=== PATIENT | female | born 1975 | race Caucasian/White ===

== ENCOUNTER 2020-11-04 07:37 | Emergency (ER) | payer SELFPAY ==
[~2020-11-04] VITALS: Ht 165.1 cm; Wt 75.0 kg
--- NOTE | 2020-11-04 08:02 | PHYS DOC ---
Past History Past Medical History: Diabetes (Insulin-dependent type 2; however is not on any medications after losing 100+ pounds), Hypertension, Other (x4 different rare kidney diseases) Adult General Chief Complaint Chief Complaint: SYNCOPE HPI HPI Patient is a 45-year-old female presenting via EMS for syncope. Patient reportedly had 4 episodes of syncope this morning while at work. Patient reports that this has happened in the past, all have been due to episodes of hypotension. Patient was previously extremely unhealthy, has several chronic kidney diseases and at one time was obese with hypertension, insulin-dependent type 2 diabetic etc. She subsequently lost +100lbs in the past 12 months and is off of all medications except for vitamins. Denies any excessive coffee use, states she forgot to take her vitamins and protein shake in the morning prior to work, did not have any other p.o. intake after waking up. Patient subsequently remembers going to work and after approximately 30 minutes on the job, started having prodromal feelings of passing out such as lightheaded, dizziness, vision changes and overall feeling of unease. She then had x3 episodes of syncope that were observed by peers. First of which prompted patient to fall to ground hitting her head on a hard metallic safe in the process. EMS was subsequently called after patient continued to demonstrate weakness and feelings of light headedness. On arrival, EMS evaluated patient and found patient to be 74/50 and subsequently 94/60 on recheck with POC glucose >120. Patient was given her typical protein shake to drink en route to our facility and report this feeling "much better" after taking this. Last reported blood pressure per EMS prior to arrival was 106/80. Review of Systems Review of Systems Fourteen body systems of review of systems have been reviewed. See HPI for pertinent positives and negative responses, other hartman all other systems are negative, non-pertinent or non-contributory Physical Exam Physical Exam Constitutional: Well developed, well nourished, no acute distress, non-toxic appearance. HENT: Normocephalic, atraumatic, bilateral external ears normal, oropharynx moist, no oral exudates, nose normal. Eyes: PERRLA, EOMI, conjunctiva normal, no discharge. Neck: Normal range of motion, no tenderness, supple, no stridor. Cardiovascular: Heart rate regular, sinus rhythm, no murmurs rubs or gallops Lungs & Thorax: Bilateral breath sounds clear to auscultation Abdomen: Bowel sounds normal, soft, no tenderness, no masses, no pulsatile masses. Nonsurgical abdomen, no peritoneal signs Skin: Warm, dry, no erythema, no rash. Back: No tenderness, no CVA tenderness. Extremities: No tenderness, no cyanosis, no clubbing, ROM intact, no edema. Neurologic: Alert and oriented X 3, cranial nerves II through XII intact, normal motor & sensory function, no focal deficits noted. Psychologic: Affect normal, judgement normal, mood normal. Current Patient Data Vital Signs Vital Signs Date Time Temp Pulse Resp B/P (MAP) Pulse Ox O2 Delivery O2 Flow Rate FiO2 11/04/20 07:40 97.8 66 16 101/69 (80) 99 Vital Signs Date Time Temp Pulse Resp B/P (MAP) Pulse Ox O2 Delivery O2 Flow Rate FiO2 11/04/20 10:25 66 16 109/70 (83) 99 11/04/20 07:40 97.8 Lab Results Laboratory Tests Test 11/04/20 08:45 White Blood Count 8.7 x10^3/uL Red Blood Count 4.59 x10^6/uL Hemoglobin 14.3 g/dL Hematocrit 42.4 % Mean Corpuscular Volume 92 fL Mean Corpuscular Hemoglobin 31 pg Mean Corpuscular Hemoglobin Concent 34 g/dL Red Cell Distribution Width 13.4 % Platelet Count 269 x10^3/uL Neutrophils (%) (Auto) 79 % Lymphocytes (%) (Auto) 14 % Monocytes (%) (Auto) 5 % Eosinophils (%) (Auto) 2 % Basophils (%) (Auto) 1 % Neutrophils # (Auto) 6.9 x10^3uL Lymphocytes # (Auto) 1.2 x10^3/uL Monocytes # (Auto) 0.4 x10^3/uL Eosinophils # (Auto) 0.1 x10^3/uL Basophils # (Auto) 0.1 x10^3/uL Sodium Level 143 mmol/L Potassium Level 4.3 mmol/L Chloride Level 106 mmol/L Carbon Dioxide Level 26 mmol/L Anion Gap 11 Blood Urea Nitrogen 31 mg/dL Creatinine 1.3 mg/dL Estimated GFR (Cockcroft-Gault) 44.1 BUN/Creatinine Ratio 24 Glucose Level 106 mg/dL Calcium Level 9.1 mg/dL Total Bilirubin 0.2 mg/dL Aspartate Amino Transf (AST/SGOT) 18 U/L Alanine Aminotransferase (ALT/SGPT) 30 U/L Alkaline Phosphatase 55 U/L Troponin I Quantitative 0.018 ng/mL Total Protein 6.7 g/dL Albumin 3.4 g/dL Albumin/Globulin Ratio 1.0 EKG EKG EKG ordered and interpreted by myself at 0808 hrs. as sinus rhythm at 64 bpm, unremarkable intervals, no axis deviation, no acute ischemic findings, no STEMI Radiology/Procedures Radiology/Procedures CT HEAD AND C-SPINE WO dated 11/04/2020 7:52 AM Indication:Reason: syncope, fall and hit anterior head / Spl. Instructions: / History: Comparison: No comparison is available. Technique: Noncontrast images were performed. Sagittal and coronal reconstructions were obtained. One or more of the following individualized dose reduction techniques were utilized for this examination: 1. Automated exposure control 2. Adjustment of the mA and/or kV according to patient size 3. Use of iterative reconstruction technique Findings: CT head: There is no apparent intracranial hemorrhage or abnormal extra-axial fluid collection. No area of abnormal density is seen in the brain. The ventricles and basilar cisterns are normally positioned. Bone windows show no apparent fracture of the skull or abnormal sinus or mastoid opacification. CT cervical spine: There is slight reversal of the usual lordosis. There is no loss of vertebral body height or prevertebral soft tissue swelling. No fracture line is seen. Intervertebral discs do not appear narrowed. Evaluation of the soft tissue components of the canal is limited without intrathecal contrast. No destructive process is seen. IMPRESSION: CT head: No acute abnormality. CT cervical spine: No acute abnormality. Electronically signed by: Tian Baig Jr., MD (11/04/2020 9:22 AM) [id number] Heart Score C/O Chest Pain: No HEART Score for Chest Pain: HEART Score for Chest Pain Response (Comments) Value History Slighlty/Non-Suspicious 0 ECG Normal 0 Age >45 - < 65 1 Risk Factors 1 or 2 Risk Factors 1 Troponin < Normal Limit 0 Total 2 Risk Factors: Risk Factors: DM, Current or recent (<one month) smoker, HTN, HLP, family history of CAD, obesity. Risk Scores: Risk Factors: DM, Current or recent (<one month) smoker, HTN, HLP, family history of CAD, obesity. Course & Med Decision Making Course & Med Decision Making Patient know originally presented hypotensive which is normal per her and otherwise hemodynamically stable. HPI and physical exam nonconcerning for emergent or surgical pathology Comprehensive ER work-up obtained and unremarkable. 1 L IV fluid normal saline administered Patient reassessed serially throughout ER visit and remained asymptomatic. She was ambulatory without reproduction of symptoms. She is tolerating p.o. intake. She feels ready for discharge home I reviewed ER work-up at length and HPI. 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 Likely hypovolemic etiology that was improved with p.o. intake and IV fluid resuscitation Nonetheless, strict return precautions were discussed with good understanding by patient. I advised patient to follow-up with primary care physician this upcoming week for repeat evaluation. All questions and concerns addressed prior to ER departure Dragon Disclaimer Dragon Disclaimer This electronic medical record was generated, in whole or in part, using a voice recognition dictation system. Departure Departure: Impression: Primary Impression: Syncope Disposition: 01 DC HOME SELF CARE/HOMELESS Condition: GOOD Referrals: PCP,NO (PCP) Patient Instructions: Syncope Additional Instructions: As discussed prior to ER departure, your physical examination and comprehensive ER work-up was grossly unremarkable. As discussed at length, your presenting symptoms were likely due to not eating and/or drinking at all this morning prior to physical exertion at work. I discussed utility of further diagnostic tests while in ER but there is little indication in doing so, there is no indication in hospital admission at this time. As such, please continue supportive care practices while at home, please call your primary care physician tomorrow to review ER visit today. If any concerning signs or symptoms present prior to outpatient follow-up please do not hesitate to come back for repeat evaluation. It was a pleasure to take care of you and I wish you the best going forward CLEMENTE ROE DO Nov 04, 2020 08:02
[2020-11-04 09:10] LABS: BASO # 0.1 x10^3/uL (0.0-0.2); BASO % 1 % (0-3); EOS # 0.1 x10^3/uL (0.0-0.7); EOS % 2 % (0-3); HEMATOCRIT 42.4 % (36.0-47.0); HEMOGLOBIN 14.3 g/dL (12.0-15.5); LYMPH # 1.2 x10^3/uL (1.0-4.8); LYMPH % 14 % (24-48); MEAN CORPUSCULAR HEMOGLOBIN 31 pg (25-35); MEAN CORPUSCULAR HGB CONC 34 g/dL (31-37); MEAN CORPUSCULAR VOLUME 92 fL (79-100); MONO # 0.4 x10^3/uL (0.0-1.1); MONO % 5 % (0-9); NEUT # 6.9 x10^3uL (1.8-7.7); NEUT % 79 % (31-73); PLATELET COUNT 269 x10^3/uL (140-400); RED BLOOD COUNT 4.59 x10^6/uL (3.50-5.40); RED CELL DISTRIBUTION WIDTH 13.4 % (11.5-14.5); WHITE BLOOD COUNT 8.7 x10^3/uL (4.0-11.0)
[2020-11-04 09:14] LABS: CALCIUM 9.1 mg/dL (8.5-10.1); CREATININE 1.3 mg/dL (0.6-1.0); GFR 44.1; POTASSIUM 4.3 mmol/L (3.5-5.1)
[2020-11-04 09:19] LABS: ALBUMIN 3.4 g/dL (3.4-5.0); TOTAL BILIRUBIN 0.2 mg/dL (0.2-1.0); TOTAL PROTEIN 6.7 g/dL (6.4-8.2)
--- NOTE | 2020-11-04 09:24 | RAD ---
CT HEAD AND C-SPINE WO dated 11/04/2020 7:52 AM Indication:Reason: syncope, fall and hit anterior head / Spl. Instructions: / History: Comparison: No comparison is available. Technique: Noncontrast images were performed. Sagittal and coronal reconstructions were obtained. One or more of the following individualized dose reduction techniques were utilized for this examinat ion: 1. Automated exposure control 2. Adjustment of the mA and/or kV according to patient size 3. Use of iterative reconstruction technique Findings: CT head: There is no apparent intracranial hemorrhage or abnormal extra-axial fluid collection. No ar ea of abnormal density is seen in the brain. The ventricles and basilar cisterns are normally positio christian. Bone windows show no apparent fracture of the skull or abnormal sinus or mastoid opacification. CT cervical spine: There is slight reversal of the usual lordosis. There is no loss of vertebral body height or prevertebral soft tissue swelling. No fracture line is seen. Intervertebral discs do not a ppear narrowed. Evaluation of the soft tissue components of the canal is limited without intrathecal contrast. No destructive process is seen. IMPRESSION: CT head: No acute abnormality. CT cervical spine: No acute abnormality. Electronically signed by: Tian Baig Jr., MD (11/04/2020 9:22 AM) [id number]
[2020-11-04 10:25] VITALS: BP 109/70
--- NOTE | 2020-11-04 12:28 | EKG ---
[address] [address] Test Date: 2020-11-04 Test Time: 08:00:50 Pat Name: CASTRO MARQUIS Department: Room: Gender: F [employer]: TIM : 1975 Requested By: CLEMENTE ROE Order Number: [id number] Reading MD: Measurements Intervals [place] Rate: 64 P: 38 CT: 170 QRS: 35 QRSD: 74 T: 41 QT: 380 QTc: 396 Interpretive Statements SINUS RHYTHM OTHERWISE NORMAL ECG RI6.02 No previous ECG available for comparison
== END 2020-11-04 10:25 | disposition home or self-care (01) ==
LOC: ER 07:37
DX: R55 Syncope and collapse (principal); I10 Essential (primary) hypertension; E11.9 Type 2 diabetes mellitus without complications; R42 Dizziness and giddiness
CPT/HCPCS: 36415; 70450; 72125; 80053; 84484; 85025; 93005; 99285-25

== ENCOUNTER 2020-11-20 11:16 | Emergency (ER) | payer OTHER, BC ==
[~2020-11-20] VITALS: Ht 165.1 cm; Wt 75.3 kg
[2020-11-20] MEDS ORDERED: IV NORMAL SALINE 1,000ML 1,000 ML IV ONE (12:30)
--- NOTE | 2020-11-20 12:46 | PHYS DOC ---
Past History Past Medical History: Diabetes, Hypertension, Other Additional Past Medical Histor: Lupus, OHS (MARIA M SAL APRN) Past Surgical History: Appendectomy, Hysterectomy Additional Past Surgical Histo: ORIF ankle, hand surgery (MARIA M SAL APRN) Alcohol Use: Rarely (MARIA M SAL APRN) Adult General Chief Complaint Chief Complaint: DIZZY/LIGHT HEADED HPI HPI Patient is a 45-year-old female presents emergency department with complaints of dizziness since waking up Thursday. Patient states that she went out drinking socially on Thursday evening, reports only drinking 1 drink, reports that she does not remember any events after drinking her first drink until Thursday when she woke up feeling groggy and dizzy with her heart racing. Patient states that her heart racing resolved Thursday. Patient fears she may have been "roofied". Patient states ever since she woke up Thursday morning "I just feel unbalanced or off". Patient denies any room spinning, vision changes, numbness or tingling to her extremities, headaches, chest pain or shortness of breath. Patient denies any nasal or chest congestion. Patient denies any recent illnesses. Patient denies any recent travel. Patient denies any vaginal discharge, patient denies any STI concerns. (MARIA M SAL APRN) Review of Systems Review of Systems 14 body systems of review of systems have been reviewed. See HPI for pertinent positives and negative responses, otherwise all other systems are negative, nonpertinent or noncontributory. (MARIA M SAL APRN) Current Medications Current Medications Current Medications Medications (Trade) Dose Ordered Sig/Andrea Start Time Stop Time Status Last Admin Dose Admin Sodium Chloride 1,000 ml @ 1,000 mls/hr 1X ONCE 11/20/20 12:30 11/20/20 13:29 (MARIA M SAL APRN) Allergies Allergies Allergies Coded Allergies Type Severity Reaction Last Updated Verified amoxicillin Allergy Unknown 11/20/20 Yes atorvastatin Allergy Unknown 11/20/20 Yes clavulanic acid Allergy Unknown 11/20/20 Yes iodine Allergy Unknown 11/20/20 Yes pregabalin Allergy Unknown 11/20/20 Yes (MARIA M SAL APRN) Physical Exam Physical Exam Constitutional: Well developed, well nourished, no acute distress, non-toxic appearance. 45-year-old female in no apparent distress. HENT: Normocephalic, atraumatic, bilateral external ears normal, oropharynx moist, no oral exudates, nose normal. Oropharynx pink, moist, no infectious process appreciated. No lymphadenopathy of the head or neck appreciated. Bilateral TMs within normal limits, bilateral external auditory canals within normal limits, no drainage appreciated. Bilateral turbinates moist, pink, no drainage appreciated. Eyes: PERRLA, EOMI, conjunctiva normal, no discharge. 6 cardinal eye movements intact. Neck: Normal range of motion, no tenderness, supple, no stridor. No nuchal rigidity, no meningismus signs. Cardiovascular:Heart rate regular rhythm, no murmur, heart sounds S1-S2 to auscultation. Bradycardic rate. Lungs & Thorax: Bilateral breath sounds clear to auscultation all lung valentin, no adventitious lung sounds appreciated. Abdomen: Bowel sounds normal, soft, no tenderness, no masses, no pulsatile masses. Skin: Warm, dry, no erythema, no rash. Back: No tenderness, no CVA tenderness. Extremities: No tenderness, no cyanosis, no clubbing, ROM intact, no edema. Neurologic: Alert and oriented X 3, normal motor function, normal sensory function, no focal deficits noted. Cranial nerves intact, negative Romberg sign, negative Brudzinski's sign, negative Kernig sign, +2 deep tendon reflexes of the upper and lower extremities. Psychologic: Affect normal, judgement normal, mood normal. (MARIA M SAL APRN) Current Patient Data Lab Results Laboratory Tests Test 11/20/20 12:50 11/20/20 12:55 11/20/20 12:58 Urine Collection Type Void Urine Color Yellow Urine Clarity Clear Urine pH 6.5 Urine Specific [place] 1.025 Urine Protein >100 mg/dl Urine Glucose (UA) Neg mg/dL Urine Ketones (Stick) Neg mg/dL Urine Blood Neg Urine Nitrite Neg Urine Bilirubin Neg Urine Urobilinogen Dipstick 0.2 mg/dL Urine Leukocyte Esterase Neg Urine RBC 0 /HPF Urine WBC 11-20 /HPF Urine Bacteria Few /HPF Urine Opiates Screen Neg Urine Methadone Screen Neg Urine Barbiturates Neg Urine Phencyclidine Screen Neg Urine Amphetamine/Methamphetamine Neg Urine Benzodiazepines Screen Neg Urine Cocaine Screen Neg Urine Cannabinoids Screen Neg Urine Ethyl Alcohol Neg White Blood Count 7.1 x10^3/uL Red Blood Count 4.48 x10^6/uL Hemoglobin 14.0 g/dL Hematocrit 41.8 % Mean Corpuscular Volume 93 fL Mean Corpuscular Hemoglobin 31 pg Mean Corpuscular Hemoglobin Concent 33 g/dL Red Cell Distribution Width 13.3 % Platelet Count 279 x10^3/uL Neutrophils (%) (Auto) 61 % Lymphocytes (%) (Auto) 27 % Monocytes (%) (Auto) 7 % Eosinophils (%) (Auto) 5 % Basophils (%) (Auto) 1 % Neutrophils # (Auto) 4.3 x10^3uL Lymphocytes # (Auto) 1.9 x10^3/uL Monocytes # (Auto) 0.5 x10^3/uL Eosinophils # (Auto) 0.3 x10^3/uL Basophils # (Auto) 0.1 x10^3/uL Sodium Level 140 mmol/L Potassium Level 3.9 mmol/L Chloride Level 105 mmol/L Carbon Dioxide Level 26 mmol/L Anion Gap 9 Blood Urea Nitrogen 28 mg/dL Creatinine 1.0 mg/dL Estimated GFR (Cockcroft-Gault) 59.7 BUN/Creatinine Ratio 28 Glucose Level 108 mg/dL Calcium Level 9.1 mg/dL Total Bilirubin 0.4 mg/dL Aspartate Amino Transf (AST/SGOT) 24 U/L Alanine Aminotransferase (ALT/SGPT) 33 U/L Alkaline Phosphatase 62 U/L Troponin I Quantitative 0.018 ng/mL Total Protein 7.1 g/dL Albumin 3.3 g/dL Albumin/Globulin Ratio 0.9 Glucose (Fingerstick) 103 mg/dL Current Medications Medications (Trade) Dose Ordered Sig/Andrea Route PRN Reason Start Time Stop Time Status Last Admin Dose Admin Sodium Chloride 1,000 ml @ 1,000 mls/hr 1X ONCE IV 11/20/20 12:30 11/20/20 13:29 DC 11/20/20 13:05 (MARIA M SAL APRN) EKG EKG EKG performed at 1242 by house respiratory therapy staff shows a sinus bradycardia without ectopy, heart rate 55 bpm, NV interval 0.192, QTc interval 0 .394, no acute STEMI, no ACS, no acute ischemia appreciated, EKG interpreted by ED attending physician Dr. Roe. (MARIA M SAL APRN) Radiology/Procedures Radiology/Procedures PATIENT: CASTRO NELSON BACCOUNT: [id number] : 1975 LOCATION: ER AGE: 45 SEX: F EXAM STATUS: REG ER ORD. PHYSICIAN: MARIA M SAL APRN REASON: DIZZYNESS PROCEDURE: CT HEAD WO CONTRAST EXAM: CT Head without IV contrast CLINICAL HISTORY: Dizziness COMPARISON: None. TECHNIQUE: Routine CT of the head without contrast. PQRS compliance statement - One or more of the following individualized dose reduction techniques were utilized for this study: 1. Automated exposure control 2. Adjustment of the mA and/or kV according to patient size 3. Use of iterative reconstruction technique FINDINGS: There is no evidence of hemorrhage, mass or extra-axial fluid collection. Mittal-white differentiation is maintained with no evidence of edema. There is no mass effect or shift of the intracranial structures. The ventricles, basilar cisterns and cortical sulci are normal in size and configuration for the patients stated age. The cerebellum and brainstem are unremarkable. The calvarium demonstrates no evidence of fracture or focal lesion. Patchy opacities left ethmoid air cells likely sinusitis. Otherwise normal aeration of the visualized paranasal sinuses and mastoid air cells. The visualized portions of the orbits are normal. IMPRESSION: 1. No evidence for acute intracranial process. 2. Patchy opacities left ethmoid air cells likely sinusitis Electronically signed by: Fede Fu MD (11/20/2020 1:43 PM) [facility] DICTATED AND SIGNED BY: FEDE FU MD DATE: 11/20/20 [id number] CC: MARIA M SAL APRN; CLEMENTE ROE DO; NON,STAFF ~MTH0 0 (MARIA M SAL APRN) Heart Score C/O Chest Pain: No Risk Factors: Risk Factors: DM, Current or recent (<one month) smoker, HTN, HLP, family history of CAD, obesity. Risk Scores: Risk Factors: DM, Current or recent (<one month) smoker, HTN, HLP, family history of CAD, obesity. (MARIA M SAL APRN) Course & Med Decision Making Course & Med Decision Making Pertinent Labs and Imaging studies reviewed. (See chart for details) 45-year-old female, vital signs reviewed, presents emergency department concerning dizziness since waking up Thursday morning after drinking 1 alcoholic beverage the night before, patient fears she may have been reviewed. Physical examination equivocal, patient's Liam-Hallpike test negative, cranial nerves intact. Physical examination for central vertigo versus peripheral vertigo ill- defined. EKG, troponin, CBC, CMP, TSH, free T4, CT head without contrast, 1 L normal saline IV ordered. EKG negative for acute process, patient's labs are unremarkable, CT head was unremarkable for acute intracranial process except for however, house radiologist did read left ethmoidal sinusitis. Upon reexamination of the patient, patient states that her dizziness has resolved, patient states she just feels a little groggy. Discussed CT findings of Stewart model sinusitis. Discussed with patient starting on Zyrtec for environmental source, Zithromax for possible bacterial source, also discussed with patient this may be a viral source. Patient did request Diflucan as she usually gets yeast infections after taking antibiotics. Patient is also requesting off work today and tomorrow. Patient gave verbal understanding of discharge home instructions, antibiotic use, started on Zyrtec, follow-up with her primary care physician tomorrow, return to emergency department precautions and concerns, patient states she does feel better and is ready to go home, patient was discharged home without incident. (MARIA M SAL APRN) Course & Med Decision Making I oversaw on the above date of service of this patient and discussed the care with the [facility]. I agree with the findings, plan of care, and disposition as documented. Dizziness likely related to sinusitis versus residual p.o. ingestion. No indication for further diagnostic work-up or hospitalization for well-appearing and ambulatory patient Electronically signed, Clemente Roe DO (CLEMENTE ROE DO) Rachel Disclaimer Rachel Disclaimer This electronic medical record was generated, in whole or in part, using a voice recognition dictation system. (MARIA M SAL APRN) Departure Departure: Impression: Primary Impression: Dizziness, nonspecific Additional Impression: Sinusitis Disposition: HOME / SELF CARE / HOMELESS Condition: GOOD Referrals: NON,STAFF (PCP) Patient Instructions: Dizziness, Sinusitis Additional Instructions: You were evaluated today in the emergency department for dizziness. A extensive evaluation was performed today in the emergency department. Your urine was not infected, there were no signs of illicit drugs in your urine, your lab work did not show any concerning signs or abnormalities that would require admission to the hospital. The CT of your head did not show any brain abnormalities, however as we discussed it showed some sinusitis in your left ethmoid sinus area. This may be causing your dizziness transiently. As we discussed I am prescribing you a Z-Vladislav to cover any bacterial infectious source, I am also prescribing you Zyrtec to take daily to cover any environmental source, and as we discussed there may be a viral source to this sinusitis that will run its course, with that I would encourage you to increase your fluid intake, continue taking your normal home vitamins. Please follow-up with your primary care physician Dr. Sameera Benavidez, call her tomorrow for an appointment. I am giving you today and tomorrow off of work. Please return to the emergency department for worsening symptoms or other concerns. EMERGENCY DEPARTMENT GENERAL DISCHARGE INSTRUCTIONS Thank you for coming to [facility] (ED) today and trusting us with you care. We trust that you had a positivie experience in our Emergency Department. If you wish to speak to the department management, you may call the director at [phone]. YOUR FOLLOW UP INSTRUCTIONS ARE FOLLOWS: 1. Do you have a private Doctor? If you do not have a private doctor, please ask for a resource list of physicians or clinics that may be able to assist you with follow up care. 2. The Emergency Physician has interpreted your x-rays. The X-Ray specialist will also review them. If there is a change in the findings, you will be notified in 48 hours when at all possible. 3. A lab test or culture has been done, your results will be reviewed and you will be notified if you need a change in treatment. ADDITIONAL INSTRUCTIONS AND INFORMATION: 1. Your care today has been supervised by a physician who is specially trained in emergency care. Many problems require more than one evaluation for a complete diagnosis and treatment. We recommend that you schedule your follow up appointment as recommended to ensure complete treatment of you illness or injury. If you are unable to obtain follow up care and continue to have a problem, or if your condition worsens, we recommend that you return to the ED. 2. We are not able to safely determine your condition over the phone nor are we able to give sound medical advice over the phone. For these safety reasons, if you call for medical advice we will ask you to come to the ED for further evaluation. 3. If you have any questions regarding these discharge instructions please call the ED at [phone]. SAFETY INFORMATION: In the interest of safety, wellness, and injury prevention; we encourage you to wear your sealbelt, if you smoke; quite smoking, and we encourage family to use a protective helmet for bicycling and other sporting events that present an increased risk for head injury. IF YOUR SYMPTOMS WORSEN OR NEW SYMPTOMS DEVELOP, OR YOU HAVE CONCERNS ABOUT YOUR CONDITION; OR IF YOUR CONDITION WORSENS WHILE YOU ARE WAITING FOR YOUR FOLLOW UP APPOINTMENT; EITHER CONTACT YOUR PRIMARY CARE DOCTOR, THE PHYSICIAN WHOSE NAME AND NUMBER YOU WERE GIVEN, OR RETURN TO THE ED IMMEDIATELY. Scripts Cetirizine Hcl (ZYRTEC) 10 Mg Tablet 1 TAB PO DAILY for ALLERGIES, #30 TAB 2 Refills Prov: MARIA M SAL APRN 11/20/20 Fluconazole (DIFLUCAN) 150 Mg Tablet 1 TAB PO ONCE for YEAST INFECTION PROPLYLAXIS, #3 TAB TAKE ONE TABLET ON DAYS 1,3,AND 5 WHEN STARTING ANTIBIOTIC REGIMEN. Prov: MARIA M SAL APRN 11/20/20 Azithromycin (AZITHROMYCIN TABLET) 250 Mg Tablet 1 PKG PO UD for SINUSITIS for 5 Days, #6 TAB 0 Refills 2 the first day followed by 1 for days 2-5 Prov: MARIA M SAL APRN 11/20/20 Problem Qualifiers Additional Impression: Sinusitis Sinusitis location: ethmoidal Chronicity: unspecified Qualified Codes: J32.2 - Chronic ethmoidal sinusitis MARIA M SAL APRN Nov 20, 2020 12:46 CLEMENTE ROE DO Nov 21, 2020 07:11
[2020-11-20 13:13] LABS: BASO # 0.1 x10^3/uL (0.0-0.2); BASO % 1 % (0-3); EOS # 0.3 x10^3/uL (0.0-0.7); EOS % 5 % (0-3); HEMATOCRIT 41.8 % (36.0-47.0); LYMPH # 1.9 x10^3/uL (1.0-4.8); LYMPH % 27 % (24-48); MEAN CORPUSCULAR HEMOGLOBIN 31 pg (25-35); MEAN CORPUSCULAR HGB CONC 33 g/dL (31-37); MEAN CORPUSCULAR VOLUME 93 fL (79-100); MONO # 0.5 x10^3/uL (0.0-1.1); MONO % 7 % (0-9); NEUT # 4.3 x10^3uL (1.8-7.7); NEUT % 61 % (31-73); PLATELET COUNT 279 x10^3/uL (140-400); RED BLOOD COUNT 4.48 x10^6/uL (3.50-5.40); RED CELL DISTRIBUTION WIDTH 13.3 % (11.5-14.5); WHITE BLOOD COUNT 7.1 x10^3/uL (4.0-11.0)
[2020-11-20 13:22] LABS: BILIRUBIN,URINE NEG (NEG); CLARITY,URINE CLEAR; COLOR,URINE YELLOW; GLUCOSE,URINE NEG (NEG)
[2020-11-20 13:23] LABS: AMPHETAMINE/METHAMPHETAMINE NEG (NEG); BARBITURATES NEG (NEG); BENZODIAZEPINES NEG (NEG); CANNABINOIDS NEG (NEG); COCAINE NEG (NEG); METHADONE NEG (NEG); NITRITE,URINE NEG (NEG); OPIATES NEG (NEG); PHENCYCLIDINE NEG (NEG); UROBILINOGEN,URINE 0.2 mg/dL (0.2 mg/dL)
[2020-11-20 13:24] LABS: RBC,URINE 0 /HPF (0-2)
[2020-11-20 13:25] LABS: BACTERIA,URINE FEW /HPF (0-FEW)
[2020-11-20 13:25] LABS: CALCIUM 9.1 mg/dL (8.5-10.1); GFR 59.7; POTASSIUM 3.9 mmol/L (3.5-5.1)
[2020-11-20 13:30] LABS: ALBUMIN 3.3 g/dL (3.4-5.0); ALBUMIN/GLOBULIN RATIO 0.9 (1.0-1.7); TOTAL BILIRUBIN 0.4 mg/dL (0.2-1.0); TOTAL PROTEIN 7.1 g/dL (6.4-8.2)
--- NOTE | 2020-11-20 13:46 | RAD ---
EXAM: CT Head without IV contrast CLINICAL HISTORY: Dizziness COMPARISON: None. TECHNIQUE: Routine CT of the head without contrast. PQRS compliance statement - One or more of the following individualized dose reduction techniques wer e utilized for this study: 1. Automated exposure control 2. Adjustment of the mA and/or kV according to patient size 3. Use of iterative reconstruction technique FINDINGS: There is no evidence of hemorrhage, mass or extra-axial fluid collection. Mittal-white differentiation is maintained with no evidence of edema. There is no mass effect or shift of the intracranial structures. The ventricles, basilar cisterns and cortical sulci are normal in size and configuration for the luis ents stated age. The cerebellum and brainstem are unremarkable. The calvarium demonstrates no evidence of fracture or focal lesion. Patchy opacities left ethmoid air cells likely sinusitis. Otherwise normal aeration of the visualized paranasal sinuses and mastoid air cells. The visualized portions of the orbits are normal. IMPRESSION: 1. No evidence for acute intracranial process. 2. Patchy opacities left ethmoid air cells likely sinusitis Electronically signed by: Fede Lemus MD (11/20/2020 1:43 PM) MAN
--- NOTE | 2020-11-20 14:00 | EKG ---
[address] [address] Test Date: 2020-11-20 Test Time: 12:42:01 Pat Name: CASTRO NELSON Department: Room: Gender: [employer] Lab Technician: : 1975 Requested By: CLEMENTE ROE Order Number: [id number] Reading MD: Measurements Intervals [place] Rate: 55 P: 31 GA: 192 QRS: 43 QRSD: 70 T: 52 QT: 410 QTc: 394 Interpretive Statements SINUS RHYTHM NORMAL ECG RI6.02 No previous ECG available for comparison
[2020-11-20] MEDS ORDERED: CETI10TA74 PO (14:14)
[2020-11-20] MEDS ORDERED: AZIT250T6 PO (14:14)
[2020-11-20] MEDS ORDERED: FLUC150T PO (14:14)
[2020-11-20 14:51] VITALS: BP 128/76
[2020-11-21 14:26] LABS: FREE T4 0.89 ng/dL (0.76-1.46); THYROID STIM HORMONE (TSH) 1.056 uIU/mL (0.358-3.740)
== END 2020-11-20 14:56 | disposition home or self-care (01) ==
LOC: ER 11:16
DX: R42 Dizziness and giddiness (principal); J32.2 Chronic ethmoidal sinusitis; E11.9 Type 2 diabetes mellitus without complications; I10 Essential (primary) hypertension; Z88.1 Allergy status to other antibiotic agents; Z88.8 Allergy status to other drugs, medicaments and biological substances; Z79.899 Other long term (current) drug therapy
CPT/HCPCS: 36415; 70450; 80053; 80307; 81001; 82947; 84439; 84443; 84484; 85025; 87086; 93005; 96360; 96361; 99285; J7030